=== PATIENT | male | born 1960 | race African-American/Black ===

== ENCOUNTER 2018-09-05 12:57 | Emergency (ER) | payer OTHER ==
[~2018-09-05] VITALS: Ht 185.4 cm; Wt 99.8 kg
[2018-09-05 13:15] VITALS: BP 158/76
[2018-09-05] MEDS ORDERED: Metoclopramide 10mg/2ml Inj IVP ONE (13:15)
[2018-09-05] MEDS ORDERED: DiphenhydrAMINE 50mg/ml Inj IVP ONE (13:15)
--- NOTE | 2018-09-05 13:15 | NUR ---
ED Nurse Note: pt brought in to ER by ambulance from bus due to stabbing chest pain 08/06. pt aao x4 and ambulatory with FWW. skin clean and intact. pt has RUE picc line with 2 lumen. pt denied chest pain at this moment. pt reported that he smoked marihuana.
--- NOTE | 2018-09-05 13:20 | NUR ---
ED Nurse Note: pt reported chest pain 5/10 stabbing. ERMD made aware.
--- NOTE | 2018-09-05 13:21 | Emergency Room Report ---
History of Present Illness General Chief Complaint: Chest Pain Source: Patient, EMS (Johnnie Abbott MD) Present Illness HPI Patient presents with chest pain. States pressure. H/O multiple stents and cardiac disease. He rates the pain 10/10 at this time, left-sided nonradiating. Will not answer if exertional. He states it is constant. Denies fevers or chills. No productive cough. No leg edema or calf pain. No hemoptysis. The patient smokes. No palpitations, nausea, vomiting, diarrhea, dysuria, abdominal pain, shortness of breath, depression, visual changes, headache. Left hospital last night and states was treated for COPD. See discussion for further history. (Johnnie Abbott MD) Allergies: Coded Allergies: IBUPROFEN (Verified Allergy, Unknown, 09/05/18) TRAMADOL (Verified Allergy, Unknown, 09/05/18) Patient History Past Medical History: see triage record Past Surgical History: PTCA Social History: Reports: smoking, drug use Social History Narrative lives in [facility] Reviewed Nursing Documentation: PMH: Agreed; PSxH: Agreed (Johnnie Abbott MD) Review of Systems All Other Systems: negative except mentioned in HPI (Johnnie Abbott MD) Physical Exam Vital Signs Date Time Temp Pulse Resp B/P (MAP) Pulse Ox O2 Delivery O2 Flow Rate FiO2 09/05/18 12:54 98.8 110 18 154/96 (115) 95 Room Air Sp02 EP Interpretation: reviewed, normal General Appearance: well appearing, no apparent distress, GCS 15, other - Smells of cannabis Head: normocephalic, atraumatic Eyes: bilateral eye PERRL, bilateral eye EOMI, bilateral eye Scleral Injection ENT: moist mucus membranes Neck: supple Respiratory: chest non-tender, lungs clear, normal breath sounds Cardiovascular #1: regular rate, rhythm Cardiovascular #2: 2+ radial (R) Gastrointestinal: normal inspection, normal bowel sounds, non tender, no mass, non-distended Musculoskeletal: back normal, gait/station normal, normal range of motion, no calf tenderness, Sorin's Sign negative Neurologic: alert, oriented x3, grossly normal Psychiatric: mood/affect normal Skin: normal inspection, warm/dry (Johnnie Abbott MD) Medical Decision Making Diagnostic Impression: Primary Impression: Chest pain Qualified Codes: R07.9 - Chest pain, unspecified Additional Impressions: Hyperglycemia Renal insufficiency Substance abuse Elevated troponin I level Cocaine abuse Elevated brain natriuretic peptide (BNP) level ER Course Patient presents with left-sided chest pain this pressure. Differential includes acute myocardial infarction, acute coronary syndrome, drug seeking behavior, gastritis, esophagitis, pneumonia, COPD exacerbation amongst others. The patient will be evaluated with EKG, chest x-ray and labs. The patient will be treated with aspirin, nitrates and analgesia. 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 EKG was sinus tachycardia frequent PVCs left anterior superior hemiblock and nonspecific ST-T wave changes CXR picc and pacer. Increased goodman. Patient with dyspnea and requesting breathing treatment. Ordered. 14:25. Elevated BNP. Stop fluids. Lasix and metoprolol ordered. Patient threatening to sign out AMA. Requesting more pain medicine. Convinced to stay. Told of risk of due to [place]. [employer] (insurance) states patient had signed out of Milly @ 1:20 after receiving morphine and Dilaudid. Apparently has multiple presentations requesting opiates and prescriptions. Usually troponin is 2. Patient sleeping. I told him I would not give him more pain medicine. Told him transfer to [facility]. He agrees to go. 15:45. Presented to Dr. Philip at [facility] who accepts the patient 16:[address] Sanabria. Laboratory Tests Test 09/05/18 13:45 White Blood Count 8.8 K/UL (4.8-10.8) Red Blood Count 4.31 M/UL (4.70-6.10) L Hemoglobin 12.0 G/DL (14.2-18.0) L Hematocrit 37.9 % (42.0-52.0) L Mean Corpuscular Volume 88 FL (80-99) Mean Corpuscular Hemoglobin 27.9 PG (27.0-31.0) Mean Corpuscular Hemoglobin Concent 31.7 G/DL (32.0-36.0) L Red Cell Distribution Width 15.1 % (11.6-14.8) H Platelet Count 195 K/UL (150-450) Mean Platelet Volume 7.2 FL (6.5-10.1) Neutrophils (%) (Auto) % (45.0-75.0) Lymphocytes (%) (Auto) % (20.0-45.0) Monocytes (%) (Auto) % (1.0-10.0) Eosinophils (%) (Auto) % (0.0-3.0) Basophils (%) (Auto) % (0.0-2.0) Differential Total Cells Counted 100 Neutrophils % (Manual) 93 % (45-75) H Lymphocytes % (Manual) 3 % (20-45) L Monocytes % (Manual) 4 % (1-10) Eosinophils % (Manual) 0 % (0-3) Basophils % (Manual) 0 % (0-2) Band Neutrophils 0 % (0-8) Platelet Estimate Adequate Platelet Morphology Normal Hypochromasia 1+ Anisocytosis 1+ Prothrombin Time 10.4 SEC (9.30-11.50) Prothrombin Time INR 1.0 (0.9-1.1) PTT 22 SEC (23-33) L Urine Color Pale yellow Urine Appearance Clear Urine pH 5 (4.5-8.0) Urine Specific [place] 1.015 (1.005-1.035) Urine Protein Negative (NEGATIVE) Urine Glucose (UA) 4+ (NEGATIVE) H Urine Ketones Negative (NEGATIVE) Urine Blood Negative (NEGATIVE) Urine Nitrite Negative (NEGATIVE) Urine Bilirubin Negative (NEGATIVE) Urine Urobilinogen Normal MG/DL (0.0-1.0) Urine Leukocyte Esterase Negative (NEGATIVE) Sodium Level 142 MMOL/L (136-145) Potassium Level 4.3 MMOL/L (3.5-5.1) Chloride Level 103 MMOL/L (98-107) Carbon Dioxide Level 29 MMOL/L (21-32) Anion Gap 10 mmol/L (5-15) Blood Urea Nitrogen 35 mg/dL (7-18) H Creatinine 1.7 MG/DL (0.55-1.30) H Estimate Glomerular Filtration Rate 41.8 mL/min (>60) Glucose Level 326 MG/DL (74-106) H Calcium Level 9.5 MG/DL (8.5-10.1) Total Bilirubin 0.2 MG/DL (0.2-1.0) Aspartate Amino Transferase (AST) 14 U/L (15-37) L Alanine Aminotransferase (ALT) 28 U/L (12-78) Alkaline Phosphatase 61 U/L (46-116) Total Creatine Kinase 233 U/L (26-308) Troponin I 0.081 ng/mL (0.000-0.056) Pro-B-Type Natriuretic Peptide 22350 pg/mL (0-125) H Total Protein 7.3 G/DL (6.4-8.2) Albumin 3.3 G/DL (3.4-5.0) L Globulin 4.0 g/dL Albumin/Globulin Ratio 0.8 (1.0-2.7) L Urine Opiates Screen Negative (NEGATIVE) Urine Barbiturates Screen Negative (NEGATIVE) Phencyclidine (PCP) Screen Negative (NEGATIVE) Urine Amphetamines Screen Negative (NEGATIVE) Urine Benzodiazepines Screen Negative (NEGATIVE) Urine Cocaine Screen Positive (NEGATIVE) H Urine Marijuana (THC) Screen Negative (NEGATIVE) (Johnnie Abbott MD) ER Course Patient was noted to have some chest discomfort and recent drug use. Patient endorsed me by Dr. Abbott pending transfer to [facility]. Patient was noted to have changed his mind about staying in the hospital and stated that he wanted to leave. Patient was advised risk of and worsening of condition due to patient's multiple significant medical conditions. Patient indicates understanding and appears to be able to make his own decisions. Patient will be leaving the hospital AGAINST MEDICAL ADVICE. Patient refused to sign. Patient all patient's questions were answered. He was advised to return if he changes mind. (Jose Luis Sanabria MD) EKG Diagnostic Results Rate: tachycardiac Rhythm: NSR ST Segments: no acute changes (Johnnie Abbott MD) Rhythm Strip Diag. Results EP Interpretation: yes Rhythm: other - Sinus tachycardia rate 103 PVCs (Johnnie Abbott MD) Chest X-Ray Diagnostic Results Chest X-Ray Diagnostic Results : Chest X-Ray Ordered: Yes # of Views/Limited/Complete: 1 View Indication: Other EP Interpretation: Yes Interpretation: no effusion, no pneumothorax, other - PICC and inc vasc Impression: Other Electronically Signed by: Electronically signed by Johnnie Abbott MD (Johnnie Abbott MD) Last Vital Signs Date Time Temp Pulse Resp B/P (MAP) Pulse Ox O2 Delivery O2 Flow Rate FiO2 09/05/18 16:36 98.6 95 20 132/84 98 Room Air 21 Status: improved (Johnnie Abbott MD) Disposition: AGAINST MEDICAL ADVICE Condition: Serious Scripts Unable to Obtain Active Prescriptions or Reported Meds Johnnie Abbott MD Sep 05, 2018 13:21 Jose Luis Sanabria MD Sep 05, 2018 16:34
[2018-09-05] MEDS ORDERED: Nitroglycerin 2% oint pkt TOPIC ONE (13:30)
[2018-09-05] MEDS ORDERED: Morphine Sulfate 4mg/ml Inj (IV USE ONLY) IVP ONE (13:30)
[2018-09-05 14:06] LABS: APPEARANCE,URINE CLEAR; BILIRUBIN, URINE NEGATIVE (NEGATIVE); COLOR,URINE PALE YELLOW; GLUCOSE, URINE (UA) 4+ (NEGATIVE); KETONES,URINE NEGATIVE (NEGATIVE); LEUKOCYTE ESTERASE ,URINE NEGATIVE (NEGATIVE); NITRITE,URINE NEGATIVE (NEGATIVE); PH,URINE 5 (4.5-8.0); PROTEIN,URINE NEGATIVE (NEGATIVE); UROBILINOGEN,URINE NORMAL MG/DL (0.0-1.0)
[2018-09-05 14:09] LABS: HEMATOCRIT 37.9 % (42.0-52.0); MEAN CORPUSCULAR VOLUME 88 FL (80-99); PLATELET COUNT 195 K/UL (150-450); RED BLOOD COUNT 4.31 M/UL (4.70-6.10); RED CELL DISTRIBUTION WIDTH 15.1 % (11.6-14.8); WHITE BLOOD COUNT 8.8 K/UL (4.8-10.8)
[2018-09-05 14:24] LABS: ANION GAP 10 mmol/L (5-15); BLOOD UREA NITROGEN 35 mg/dL (7-18); CALCIUM 9.5 MG/DL (8.5-10.1); CARBON DIOXIDE 29 MMOL/L (21-32); CHLORIDE 103 MMOL/L (98-107); CREATININE 1.7 MG/DL (0.55-1.30); POTASSIUM 4.3 MMOL/L (3.5-5.1); SODIUM 142 MMOL/L (136-145)
[2018-09-05] MEDS ORDERED: Ipratropium 0.02% Inh Soln 2.5ml UD HHN ONE (14:30)
[2018-09-05] MEDS ORDERED: Albuterol ud Inhalation HHN ONE (14:30)
[2018-09-05 14:33] LABS: ALANINE AMINOTRANSFERASE 28 U/L (12-78); ALBUMIN 3.3 G/DL (3.4-5.0); ALBUMIN/GLOBULIN RATIO 0.8 (1.0-2.7); ALKALINE PHOSPHATASE 61 U/L (46-116); ASPARTATE AMINO TRANSFERASE 14 U/L (15-37); BILIRUBIN,TOTAL 0.2 MG/DL (0.2-1.0); CREATINE KINASE 233 U/L (26-308)
[2018-09-05] MEDS ORDERED: Metoprolol 5mg/5ml Inj IVP STA (14:41)
--- NOTE | 2018-09-05 15:20 | NUR ---
ED Nurse Note: pt requesting for Morphine. reported to ERMD. ERMD will speak to pt.
[2018-09-05 15:30] VITALS: BP 159/92
--- NOTE | 2018-09-05 15:45 | NUR ---
ED Nurse Note: [facility] spoke to the pt. pt agreed with no more pain medications since he does not have pain.
[2018-09-05 16:36] VITALS: BP 132/84
--- NOTE | 2018-09-05 16:37 | NUR ---
AMA: SEE AMA FORM. Pt advised to stay and explained the risk of leaving AMA with his condition by [facility] and RN but pt stated "I have been here way too long. I am leaving." Pt took himself off the monitor and changed. pt grabbed all his belongings and ambulated out with FWW. pt has PICC line and id band removed.
--- NOTE | 2018-09-06 11:50 | Diagnostic Imaging Report ---
Indication: Chest pain Comparison: None A single view chest radiograph was obtained. Findings: Pulmonary vascular congestion is present with prominent pulmonary vessels and mild cardiomegaly. There is a pacemaker on the left. A PICC line is present on the right. The tip projects over the SVC. Bones are unremarkable. IMPRESSION: Suspected mild pulmonary vascular congestion.
--- NOTE | 2018-09-08 21:12 | Cardiology Report ---
APPROVED REPORT EKG Measurement Heart [id number] Sinus tachycardia with frequent premature ventricular complexes Single APC's Left anterior fascicular block Nonspecific ST and T wave abnormality Abnormal ECG
== END 2018-09-05 16:37 | disposition left against medical advice (07) ==
LOC: EDBD 12:57 → EMR 14:00 → CANBEDREQ 17:03
DX: R07.9 Chest pain, unspecified (principal); F14.10 Cocaine abuse, uncomplicated; N28.9 Disorder of kidney and ureter, unspecified; F19.10 Other psychoactive substance abuse, uncomplicated; R79.89 Other specified abnormal findings of blood chemistry; R73.9 Hyperglycemia, unspecified; Z95.5 Presence of coronary angioplasty implant and graft; F17.200 Nicotine dependence, unspecified, uncomplicated; Z88.6 Allergy status to analgesic agent; J44.9 Chronic obstructive pulmonary disease, unspecified; I25.10 Atherosclerotic heart disease of native coronary artery without angina pectoris; R00.0 Tachycardia, unspecified
CPT/HCPCS: 36415; 71045; 80053; 80307; 81003; 82550; 83880; 84484; 85007; 85025; 85610; 85730; 93005; 94640; 94664; 96374; 96375; 99285; J1200; J1940; J2270; J2765; J7040